=== PATIENT | female | born 1970 ===

== ENCOUNTER 2024-07-12 08:15 | Inpatient (IN) | payer OTHER ==
[~2024-07-12] VITALS: Ht 157.5 cm; Wt 45.4 kg
[2024-07-12] MEDS ORDERED: IRON325 MG PO (08:29)
[2024-07-12 08:33] VITALS: BP 118/66
[2024-07-12 08:36] VITALS: BP 127/85
[2024-07-12 09:56] LABS: URINE APPEARANCE Clear; URINE BILIRRUBIN Negative (NEGATIVE); URINE BLOOD Trace; URINE COLOR Yellow; URINE GLUCOSE Negative (NEGATIVE); URINE KETONE Negative (NEGATIVE); URINE LEUKOCYTE Negative; URINE NITRATE Negative; URINE PROTEIN Negative (NEGATIVE); URINE UROBILINOGEN 0.2 E.U./dl
[2024-07-12 10:01] LABS: URINE EPITHELIAL CELLS 8.6 uL (0.0-38.8); URINE WBC 3.7 uL (0.0-23.2)
[2024-07-12 10:10] LABS: INR 1.05; PARTIAL THROMBOPLASTIN TIME 24.8 SECONDS (22.0-34.0); PROTHROMBIN TIME 11.4 SECONDS (9.0-11.5)
[2024-07-16] MEDS ORDERED: CEFAZOLIN SODIUM 1,000 MG VIAL IV ONE (14:00)
[2024-07-16] MEDS ORDERED: ONDANSETRON HCL 2 MG/ML VIAL IV SCH (15:33)
[2024-07-16] MEDS ORDERED: MORPHINE SULFATE 4 MG/ML CARTRIDGE IV PRN (15:45)
[2024-07-16] MEDS ORDERED: RINGERS SOLUTION,LACTATED 1,000 ML IV SCH (15:45)
[2024-07-16] MEDS ORDERED: OxyCODONE HCL 5 MG TABLET (ROXICODONE) PO PRN (15:45)
[2024-07-16] MEDS ORDERED: KETOROLAC TROMETHAMINE 15 MG VIAL IV SCH (17:00)
[2024-07-16 20:00] VITALS: BP 118/66
[2024-07-17] VITALS: BP 110/62
[2024-07-17 06:15] LABS: HEMATOCRIT 24.7 % (36.0-45.00); MEAN CELL VOLUME 89.4 fL (80.00-100.00); MEAN CORPUSCULAR HEMOGLOBIN 32.7 pg (27.00-32.0); MEAN CORPUSCULAR HGB CONC 36.6 g/dl (32.0-36.0); PLATELET COUNT 250 K/uL (150-450); RED BLOOD COUNT 2.76 M/uL (4.00-6.00); RED CELL DISTRIBUTION WIDTH 18.8 % (11.5-14.5)
[2024-07-17 08:50] VITALS: BP 115/67
[2024-07-17] MEDS ORDERED: FAMOTIDINE/PF 20 MG in 0.9 % SODIUM CHLORIDE 8 ML IV PUSH SCH (09:00)
[2024-07-17] MEDS ORDERED: IRON FUM,PS/FOLIC/BCOMP,C NO.9 1 CAP CAPSULE PO SCH (09:00)
[2024-07-17] MEDS ORDERED: SOD FERRIC GLUC COMPLX/SUCROSE 62.5 MG in 0.9 % SODIUM CHLORIDE 50 ML IV SCH (09:00)
[2024-07-17] MEDS ORDERED: KETOROLAC TROMETHAMINE 30 MG VIAL IV SCH (13:00)
[2024-07-17 15:49] VITALS: BP 125/73
[2024-07-17] MEDS ORDERED: KETOROLAC TROMETHAMINE 30 MG VIAL IV STA (16:53)
[2024-07-17] MEDS ORDERED: IBUprofen 800 MG TABLET PO SCH (17:00)
[2024-07-17 20:12] VITALS: BP 109/65
[2024-07-18] VITALS: BP 112/77
[2024-07-18 08:43] VITALS: BP 132/69
[2024-07-18 16:00] VITALS: BP 116/71
== END 2024-07-18 19:36 | disposition home or self-care (01) | DRG 743 ==
LOC: SURH 07-16 08:15 → O/R 07-16 10:32 → SURH 07-16 11:00 → OB/GYN 07-16 16:16
PROVIDERS: ADMIT Obstetrics & Gynecology; ATTEND Obstetrics & Gynecology
PROC: 0UT70ZZ Resection of Bilateral Fallopian Tubes, Open Approach (ICD-10-PCS; 2024-07-16)
PROC: 0UT90ZZ Resection of Uterus, Open Approach (ICD-10-PCS; principal; 2024-07-16 11:00)
DX: D25.2 Subserosal leiomyoma of uterus (principal); D25.0 Submucous leiomyoma of uterus; N72 Inflammatory disease of cervix uteri